=== PATIENT | female | born 1950 | race Caucasian/White ===

== ENCOUNTER 2017-01-23 09:44 | Emergency (ER) | payer MEDICARE ==
[~2017-01-23] VITALS: Ht 154.9 cm; Wt 93.9 kg
[2017-01-23] MEDS ORDERED: 0.9 % SODIUM CHLORIDE 10 ML DISP.SYRIN. IV PRN (10:30)
[2017-01-23] MEDS ORDERED: ONDANSETRON PF 4 MG/2 ML VIAL. IV ONE (10:30)
[2017-01-23 10:52] LABS: BASO % 0 % (0-3); CALCIUM 9.4 mg/dL (8.5-10.1); CREATININE 0.8 mg/dL (0.6-1.0); EOS % 0 % (0-3); HEMATOCRIT 43.8 % (36.0-47.0); HEMOGLOBIN 14.3 g/dL (12.0-15.5); LYMPH # 0.4 x10^3/uL (1.0-4.8); LYMPH % 3 % (24-48); MEAN CORPUSCULAR HEMOGLOBIN 25 pg (25-35); MEAN CORPUSCULAR HGB CONC 33 g/dL (31-37); MEAN CORPUSCULAR VOLUME 76 fL (79-100); MONO % 4 % (0-9); NEUT % 92 % (31-73); PLATELET COUNT 238 x10^3/uL (140-400); POTASSIUM 3.7 mmol/L (3.5-5.1); RED BLOOD COUNT 5.75 x10^6/uL (3.50-5.40); RED CELL DISTRIBUTION WIDTH 17.5 % (11.5-14.5); WHITE BLOOD COUNT 12.9 x10^3/uL (4.0-11.0)
[2017-01-23 10:57] LABS: TOTAL BILIRUBIN 0.7 mg/dL (0.2-1.0); TOTAL PROTEIN 7.9 g/dL (6.4-8.2)
[2017-01-23] MEDS ORDERED: IV NORMAL SALINE 500ML BAG 500 ML IV ONE ×2 (11:00→11:15)
[2017-01-23] MEDS ORDERED: PROCHLORPERAZINE 10 MG/2 ML VIAL. IV ONE (11:45)
[2017-01-23] MEDS ORDERED: diphenhydrAMINE 50 MG/ML VIAL IVP ONE (11:45)
[2017-01-23] MEDS ORDERED: MORPHINE SULFATE 4 MG/ML DISP.SYRIN. IV ONE (12:30)
[2017-01-23 12:38] LABS: ANISOCYTOSIS SLIGHT; PLT ESTIMATE ADEQUATE (ADEQUATE)
--- NOTE | 2017-01-23 13:53 | PHYS DOC ---
Past Medical History Past Medical History: A-Fib, Arthritis, High Cholesterol, Hypertension, Other Additional Past Medical Histor: chronic back pain. Past Surgical History: Knee Replacement Additional Past Surgical Histo: left knee, ablationx2 Alcohol Use: None Drug Use: None Adult General Chief Complaint Chief Complaint: NAUSEA/VOMITING/DIARRHA HPI HPI Patient is a 66 year old female who presents with nausea, vomiting and diarrhea. Symptoms started yesterday, reports multiple episodes, no blood or bile in vomit. Pt is feeling generalized weakness, no fever, no chest pain or shortness of breath. Review of Systems Review of Systems Constitutional: Denies fever or chills [] Eyes: Denies change in visual acuity, redness, or eye pain [] HENT: Denies nasal congestion or sore throat [] Respiratory: Denies cough or shortness of breath [] Cardiovascular: No additional information not addressed in HPI [] GI: per hpi : Denies dysuria or hematuria [] Musculoskeletal: Denies back pain or joint pain [] Integument: Denies rash or skin lesions [] Neurologic: Denies headache, focal weakness or sensory changes [] Endocrine: Denies polyuria or polydipsia [] Current Medications Current Medications Current Medications Medications (Trade) Dose Ordered Sig/Roger Start Time Stop Time Status Last Admin Dose Admin Diphenhydramine HCl 25 mg 25 mg 1X ONCE 01/23/17 11:45 01/23/17 11:46 DC 01/23/17 11:42 25 MG Morphine Sulfate 4 mg 1X ONCE 01/23/17 12:30 01/23/17 12:31 DC 01/23/17 12:18 4 MG Ondansetron HCl (Zofran) 4 mg 1X ONCE 01/23/17 10:30 01/23/17 10:32 DC 01/23/17 10:42 4 MG Prochlorperazine Edisylate (Compazine) 10 mg 1X ONCE 01/23/17 11:45 01/23/17 11:46 DC 01/23/17 11:45 10 MG Sodium Chloride (Iv Sodium Chloride 0.9% 500ml Bag) 500 ml @ 500 mls/hr 1X ONCE 01/23/17 11:15 01/23/17 12:14 DC 01/23/17 13:39 500 MLS/HR Sodium Chloride (Normal Saline Flush) 10 ml QSHIFT PRN 01/23/17 10:30 01/23/17 15:53 DC Allergies Allergies Allergies Coded Allergies Type Severity Reaction Last Updated Verified atorvastatin Allergy Intermediate nausea 01/23/17 Yes celecoxib Allergy Intermediate gastric bleed 01/23/17 Yes sulfamethoxazole Allergy Intermediate 01/23/17 Yes trimethoprim Allergy Intermediate 01/23/17 Yes cephalexin Allergy Unknown flu like symptoms 01/23/17 Yes meloxicam Allergy Unknown unknown 01/23/17 Yes metronidazole Allergy Unknown flu like symptoms 01/23/17 Yes sotalol Allergy Unknown clinical depression 01/23/17 Yes Physical Exam Physical Exam Constitutional: Well developed, well nourished, ill appearing, non-toxic appearance. [] HENT: Normocephalic, atraumatic, bilateral external ears normal, oropharynx moist, no oral exudates, nose normal. [] Eyes: PERRLA, EOMI, conjunctiva normal, no discharge. [] Neck: Normal range of motion, no tenderness, supple, no stridor. [] Cardiovascular:Heart rate regular rhythm, no murmur [] Lungs & Thorax: Bilateral breath sounds clear to auscultation [] Abdomen: Bowel sounds normal, soft, no tenderness, no masses, no pulsatile masses, no guarding or peritoneal signs. Skin: Warm, dry, no erythema, no rash. [] Back: No tenderness, no CVA tenderness. [] Extremities: No tenderness, no cyanosis, no clubbing, ROM intact, no edema. [] Neurologic: Alert and oriented X 3, normal motor function, normal sensory function, no focal deficits noted. [] Psychologic: Affect normal, judgement normal, mood normal. [] Current Patient Data Vital Signs Vital Signs Date Time Temp Pulse Resp B/P Pulse Ox O2 Delivery O2 Flow Rate FiO2 01/23/17 15:02 105 176/78 01/23/17 14:32 21 Nasal Cannula 2 01/23/17 13:32 96 01/23/17 09:56 98.2 98.2 Lab Values Laboratory Tests Test 01/23/17 09:55 01/23/17 14:00 White Blood Count 12.9x10^3/uL (4.0-11.0) H Red Blood Count 5.75x10^6/uL (3.50-5.40) H Hemoglobin 14.3g/dL (12.0-15.5) Hematocrit 43.8% (36.0-47.0) Mean Corpuscular Volume 76fL (79-100) L Mean Corpuscular Hemoglobin 25pg (25-35) Mean Corpuscular Hemoglobin Concent 33g/dL (31-37) Red Cell Distribution Width 17.5% (11.5-14.5) H Platelet Count 238x10^3/uL (140-400) Neutrophils (%) (Auto) 92% (31-73) H Lymphocytes (%) (Auto) 3% (24-48) L Monocytes (%) (Auto) 4% (0-9) Eosinophils (%) (Auto) 0% (0-3) Basophils (%) (Auto) 0% (0-3) Neutrophils # (Auto) 11.9x10^3uL (1.8-7.7) H Lymphocytes # (Auto) 0.4x10^3/uL (1.0-4.8) L Monocytes # (Auto) 0.5x10^3/uL (0.0-1.1) Eosinophils # (Auto) 0.1x10^3/uL (0.0-0.7) Basophils # (Auto) 0.0x10^3/uL (0.0-0.2) Segmented Neutrophils % 77% (35-66) H Band Neutrophils % 13% (0-9) H Lymphocytes % 7% (24-48) L Monocytes % 3% (0-10) Platelet Estimate Adequate (ADEQUATE) Giant Platelets Occ Anisocytosis Slight Sodium Level 136mmol/L (136-145) Potassium Level 3.7mmol/L (3.5-5.1) Chloride Level 101mmol/L (98-107) Carbon Dioxide Level 26mmol/L (21-32) Anion Gap 9 (6-14) Blood Urea Nitrogen 24mg/dL (7-20) H Creatinine 0.8mg/dL (0.6-1.0) Estimated GFR (Cockcroft-Gault) 72.0 BUN/Creatinine Ratio 30 (6-20) H Glucose Level 126mg/dL (70-99) H Calcium Level 9.4mg/dL (8.5-10.1) Total Bilirubin 0.7mg/dL (0.2-1.0) Aspartate Amino Transferase (AST) 14U/L (15-37) L Alanine Aminotransferase (ALT) 27U/L (14-59) Alkaline Phosphatase 100U/L (46-116) Total Protein 7.9g/dL (6.4-8.2) Albumin 4.0g/dL (3.4-5.0) Albumin/Globulin Ratio 1.0 (1.0-1.7) Lipase 75U/L (73-393) Urine Collection Type Void Urine Color Yellow Urine Clarity Clear Urine pH 7.0 Urine Specific [place] 1.025 Urine Protein Negativemg/dL (NEG-TRACE) Urine Glucose (UA) Negativemg/dL (NEG) Urine Ketones (Stick) Negativemg/dL (NEG) Urine Blood Negative (NEG) Urine Nitrite Negative (NEG) Urine Bilirubin Negative (NEG) Urine Urobilinogen Dipstick 0.2mg/dL (0.2 mg/dL) Urine Leukocyte Esterase Negative (NEG) Urine RBC Rare/HPF (0-2) Urine WBC Rare/HPF (0-4) Urine Squamous Epithelial Cells Mod/LPF Urine Bacteria Few/HPF (0-FEW) Urine Mucus Mod/LPF Laboratory Tests 01/23/17 09:55 Laboratory Tests 01/23/17 09:55 EKG EKG [] Radiology/Procedures Radiology/Procedures [] Course & Med Decision Making Course & Med Decision Making Pertinent Labs and Imaging studies reviewed. (See chart for details) pt was rehydrated, labs did not show significant abnormality. Pt feeling improved , agreeable to discharge and understands return precautions. Dragon Disclaimer Dragon Disclaimer This electronic medical record was generated, in whole or in part, using a voice recognition dictation system. Departure Departure Impression: Primary Impression: Viral gastroenteritis Disposition: 01 HOME, SELF-CARE Referrals: EMMA LOPEZ (PCP) Scripts Loperamide Hcl (Loperamide)2 Mg Tablet2 Mg PO PRN PRN DIARRHEA #16 TAB take 2 tabs PO after first loose stool, then 1 tab po after each subsequent loose stool. maximum 8 tabs per day. Prov:MARISOL YANEZ MD 01/23/17 Ondansetron Hcl (Zofran)4 Mg Tablet4 Mg PO PRN TID PRN NAUSEA #12 nausea/vomiting Prov:MARISOL YANEZ MD 01/23/17 MARISOL YANEZ MD January 23, 2017 13:53
[2017-01-23 14:07] LABS: BILIRUBIN,URINE NEGATIVE (NEG); GLUCOSE,URINE NEGATIVE (NEG); NITRITE,URINE NEGATIVE (NEG); PROTEIN,URINE NEGATIVE (NEG-TRACE); UROBILINOGEN,URINE 0.2 mg/dL (0.2 mg/dL)
[2017-01-23 14:16] LABS: BACTERIA,URINE FEW /HPF (0-FEW); RBC,URINE RARE /HPF (0-2); SQUAMOUS EPITHELIAL CELL,UR MOD /LPF; WBC,URINE RARE /HPF (0-4)
[2017-01-23] MEDS ORDERED: ONDA4TAB7 PO (14:32)
[2017-01-23] MEDS ORDERED: LOPE2TAB27 PO (14:32)
[2017-01-23 15:02] VITALS: BP 176/78
== END 2017-01-23 15:27 | disposition home or self-care (01) ==
LOC: ER 09:44
DX: A08.4 Viral intestinal infection, unspecified (principal); I10 Essential (primary) hypertension; E78.00 Pure hypercholesterolemia, unspecified; M19.90 Unspecified osteoarthritis, unspecified site; I48.91 Unspecified atrial fibrillation; G89.29 Other chronic pain; Z88.2 Allergy status to sulfonamides; Z88.1 Allergy status to other antibiotic agents; Z88.8 Allergy status to other drugs, medicaments and biological substances
CPT/HCPCS: 36415; 80053; 81001; 83690; 85007; 85027; 96361; 96374; 96375; 99284; J0780; J1200; J2270; J2405; J7040